=== PATIENT | male | born 1990 | race Native Hawaiian/Other Pacific Islander ===

== ENCOUNTER 2022-04-24 06:01 | Day surgery (SDC) | payer OTHER ==
[~2022-04-24] VITALS: Ht 175.3 cm; Wt 82.9 kg
[~2022-04-24 06:01] MED LIST: ceFAZolin SOD 2 GM in IV 1 EA IV ONE
[2022-04-24] MEDS ORDERED: LR 1,000 ML IV SCH ×3 (06:35→11:25)
[2022-04-24] MEDS ORDERED: fentaNYL 100 MCG/2 ML INJECTION IV PRN (07:05)
[2022-04-24] MEDS ORDERED: EPINEPHrine INJ 1 MG/ML 1ML AMP PN ONE (07:05)
[2022-04-24] MEDS ORDERED: ROPIvacaine 0.5% 30ML INJECTION (J2795 PER 1MG) PN ONE (07:05)
[2022-04-24] MEDS ORDERED: LIDOCAINE 1% SDV 5ML VIAL PN ONE (07:05)
[2022-04-24] MEDS ORDERED: dexameTHASONE 10MG/1ML VIAL PRES.FREE (J1100 PER 1MG) PN ONE (07:05)
[2022-04-24] MEDS ORDERED: propofoL 200 MG/20 ML VIAL As Ordered ONE (07:21)
[2022-04-24] MEDS ORDERED: LIDOCAINE 2% 100MG/5ML SDV (FOR ANES.) As Ordered ONE (07:21)
[2022-04-24] MEDS ORDERED: ROCURONIUM BROMIDE 50 MG/5 ML VIAL As Ordered ONE (07:21)
[2022-04-24] MEDS ORDERED: MIDAZOLAM INJ 2MG/2ML VIAL (J2250 PER 1MG) As Ordered ONE (07:22)
[2022-04-24] MEDS ORDERED: fentaNYL 100 MCG/2 ML INJECTION As Ordered ONE (07:22)
[2022-04-24] MEDS ORDERED: TRANEXAMIC ACID 100 MG/ML 10ML VIAL As Ordered ONE (07:27)
[2022-04-24] MEDS ORDERED: BUPIVACAINE/EPIN 0.5% 30 ML VIAL As Ordered ONE (07:27)
[2022-04-24] MEDS: MIDAZOLAM INJ 2MG/2ML VIAL (J2250 PER 1MG) IV PRN ×2 (07:35→07:37)
[2022-04-24] MEDS ORDERED: ONDANSETRON 4MG 2ML VIAL As Ordered ONE (08:06)
[2022-04-24] MEDS ORDERED: dexameTHASONE 4 MG/ML 1ML VIAL (J1100 PER 1MG) As Ordered ONE (08:06)
[2022-04-24] MEDS ORDERED: ACETAMINOPHEN 1000MG 100ML IV BTL (OFIRMEV) (J0131 PER 10MG) As Ordered ONE (08:43)
[2022-04-24] MEDS ORDERED: HYDROmorphone HCL 2MG/ML 1ML VIAL As Ordered ONE (09:24)
[2022-04-24] MEDS ORDERED: EPINEPHrine 1MG/ML INJ 30ML MD-VIAL As Ordered ONE (10:01)
[2022-04-24] MEDS ORDERED: LABETALOL 100MG/20ML VIAL As Ordered ONE (10:06)
[2022-04-24] MEDS ORDERED: HYDROMORPHONE HCL 0.5 MG/ 0.5 ML SYRINGE (J1170 PER 1) IV PRN (11:25)
[2022-04-24] MEDS ORDERED: ONDANSETRON 4MG 2ML VIAL IV PRN (11:25)
[2022-04-24] MEDS ORDERED: oxyCODONE 5MG TAB PO PRN (11:25)
[2022-04-24] MEDS ORDERED: METOCLOPRAMIDE INJ 10MG/2ML VIAL (J2765 PER 1) IV PRN (11:25)
[2022-04-24] MEDS: fentaNYL 100 MCG/2 ML INJECTION IV PRN ×2 (12:10→12:16)
[2022-04-24 13:55] VITALS: BP 132/79
== END 2022-04-24 14:03 | disposition home or self-care (01) ==
LOC: M SDC 06:01
PROVIDERS: ATTEND Orthopaedic Surgery
DX: M23.612 Other spontaneous disruption of anterior cruciate ligament of left knee (principal); M23.201 Derangement of unspecified lateral meniscus due to old tear or injury, left knee; M25.562 Pain in left knee; M94.262 Chondromalacia, left knee
CPT/HCPCS: 29881; 29888; 64447; C1713; C1762; J0131; J0171; J0690; J1100; J1170; J2250; J2405; J3010